=== PATIENT | male | born 1965 | race Caucasian/White ===

== ENCOUNTER 2019-05-09 15:32 | Emergency (ER) | payer SELFPAY ==
[2019-05-09] MEDS ORDERED: NS 0.9% 1000 ML** 1,000 ML IV ONE (16:40)
[2019-05-09] MEDS ORDERED: Meclizine TAB* 12.5 MG PO ONE (16:41)
--- NOTE | 2019-05-09 16:41 | ED ---
Dizziness - HPI Summary HPI Summary: This pt is a 54 Y/O M presenting to [facility] with a CC of dizziness, described as room spinning that started on 05/07/19. He states that he has been nauseas and vomiting as of recently with chest pain and a headache. He also states that he has a chronic cough. He states that he has been diaphoretic. He states that he has had a decreased appetite due to the nausea. He states that he has vomited a total of 14 days since the onset. The headaches are persistent all day and are present on the frontal aspect. His friend states that his cough aggravates his symptoms. He denies any photophobia, neck pain, diarrhea, and fevers. He states that he has no alleviating factors. He has no pertinent PMhx. He has a SHx of smoking and excessive caffeine. - History Of Current Complaint Chief Complaint: EDDizziness Stated Complaint: GENERAL ILLNESS PER PT Time Seen by Provider: 05/09/19 16:26 Hx Obtained From: Patient Timing: Constant Severity Initially: Moderate Severity Currently: Moderate Character: Room Spinning Aggravating Factor(s): Other - cough Alleviating Factor(s): Nothing Associated Signs And Symptoms: Positive: Negative - neck pain, Nausea, Vomiting , Diaphoresis, Chest Pain, Decreased Oral Intake, Other: - dizziness, described as room spinning. Negative: Diarrhea, Visual Changes, Fever - Allergies/Home Medications Allergies/Adverse Reactions: Allergies Allergy/AdvReac Type Severity Reaction Status Date / Time No Known Allergies Allergy Verified 05/09/19 15:37 PMH/Surg Hx/FS Hx/Imm Hx Previously Healthy: Yes Endocrine/Hematology History: Denies: Hx Sickle Cell Disease Cardiovascular History: Denies: Hx Cardiac Arrest - Cancer History Hx Chemotherapy: No Hx Radiation Therapy: No - Surgical History Surgical History: Yes - Immunization History Immunizations Up to Date: Yes Infectious Disease History: No Infectious Disease History: Denies: Traveled Outside the [place] in Last 30 Days - Family History Known Family History: Positive: Hypertension - Social History Occupation: Employed Full-time Lives: Alone Alcohol Use: None Hx Substance Use: Yes Substance Use Type: Reports: Excessive Caffeine Substance Use Comment - Amount & Last Used: ~6 pots coffee/day Hx Tobacco Use: Yes Smoking Status (MU): Former Smoker Review of Systems Positive: Skin Diaphoresis, Other - dizziness described as room spinning . Negative: Fever Negative: Photophobia Negative: Sore Throat Positive: Chest Pain Positive: Cough Positive: Vomiting, Nausea. Negative: Diarrhea Positive: Headache All Other Systems Reviewed And Are Negative: Yes Physical Exam - Summary Physical Exam Summary: Constitutional: Well-developed, Well-nourished, Alert. (-) Distressed Skin: Warm, Dry HENT: Normocephalic; Atraumatic Eyes: Conjunctiva normal, no nystagmus Neck: Musculoskeletal ROM normal neck. (-) JVD, (-) Stridor, (-) Tracheal deviation Cardio: Rhythm regular, rate normal, Heart sounds normal; Intact distal pulses; The pedal pulses are 2+ and symmetric. Radial pulses are 2+ and symmetric. Pulmonary/Chest wall: Effort normal. (-) Respiratory distress, (-) Wheezes, (-) Rales Abd: Soft, (-) tenderness, (-) Distension, (-) Guarding, (-) Rebound Musculoskeletal: (-) Edema Neuro: Alert, Oriented x3, no focal deficits Psych: Mood and affect Normal Triage Information Reviewed: Yes Vital Signs On Initial Exam: Initial Vitals Temp Pulse Resp BP Pulse Ox 97.8 F 59 16 150/89 99 05/09/19 15:34 05/09/19 15:34 05/09/19 15:34 05/09/19 15:34 05/09/19 15:34 Vital Signs Reviewed: Yes Procedures - Sedation Patient Received Moderate/Deep Sedation with Procedure: No Diagnostics - Vital Signs Vital Signs Temp Pulse Resp BP Pulse Ox 05/09/19 15:34 97.8 F 59 16 150/89 99 - Laboratory Result Diagrams: 05/09/19 16:45 05/09/19 16:45 Lab Statement: Any lab studies that have been ordered have been reviewed, and results considered in the medical decision making process. - Radiology CXR Radiology Interpretation Completed By: Radiologist Summary of Radiographic Findings: NO EVIDENCE FOR ACTIVE CARDIOPULMONARY DISEASE. ED physician has reviewed this report. - CT Brain CT CT Interpretation Completed By: Radiologist Summary of CT Findings: no evidence for intracranial pathologies. ED physician has reviewed this report. - EKG 1635 Cardiac Rate: Bradycardia - 55 BPM EKG Rhythm: Sinus Bradycardia ST Segment: Normal Ectopy: None Summary of EKG Findings: An EKG at 1635 reveals sinus bradycardia at a rate of 55 BPM, nml axis, nml intervals. No STEMI. No acute changes. Interpreted by Dr. Ordaz, 05/09/2019 1635 Dizzy Course/Dx - Course Course Of Treatment: This pt is a 54 Y/O M presenting to [facility] with a CC of dizziness, described as room spinning that started on 05/07/19. He states that he has been nauseas and vomiting as of recently with chest pain and a headache. He also states that he has a chronic cough. He states that he has been diaphoretic. He states that he has had a decreased appetite due to the nausea. He states that he has vomited a total of 14 days since the onset. The headaches are persistent all day and are present on the frontal aspect. His PE found razia the has no nystagmus or focal deficits. An EKG at 1635 reveals sinus bradycardia at a rate of 55 BPM, nml axis, nml intervals. No STEMI. No acute changes. His Brain CT shows no evidence for intracranial pathologies. His CXR shows the following: NO EVIDENCE FOR ACTIVE CARDIOPULMONARY DISEASE. His labratory values show no significant findings for his CC. He will be discharged home with a Dx of nonspecific dizziness. - Diagnoses Provider Diagnoses: Dizziness, nonspecific Discharge ED - Sign-Out/Discharge Documenting (check all that apply): Patient Departure - discharge - Discharge Plan Condition: Stable Disposition: HOME Prescriptions: Meclizine HCl [Dramamine Less Drowsy] 25 mg PO TID PRN #15 tablet PRN Reason: Dizziness Patient Education Materials: Dizziness (ED) Referrals: [facility] [Outside] - 2 Days Additional Instructions: PLEASE FOLLOW UP WITH THE [facility] IN 1-3 DAYS AND RETURN TO THE EMERGENCY DEPARTMENT FOR ANY NEW OR WORSENING SYMPTOMS. TAKE THE PRESCRIBED MEDICATIONS DIRECTED. - Attestation Statements Document Initiated by Scribe: Yes Documenting Scribe: Gio Waller Provider For Whom Scribe is Documenting (Include Credential): Osmel Ordaz DO Scribe Attestation: Gio Bustos, radhaed for Osmel Ordaz DO on 05/09/19 at 1820. Status of Scribe Document: Ready
[2019-05-09 16:55] LABS: ABS Basophils 0.1 10^3/ul (0-0.2); ABS Eosinophils 0.1 10^3/ul (0-0.6); ABS Lymphocytes 2.1 10^3/ul (1.0-4.8); ABS Monocytes 0.6 10^3/ul (0-0.8); ABS Neutrophils 3.1 10^3/ul (1.5-7.7); Eosinophil % 1.5 %; Hematocrit 42 % (42-52); Hemoglobin 14.6 g/dL (14.0-18.0); Lymphocyte % 35.4 %; Mean Corpuscular HGB Conc 35 g/dL (31-36); Mean Corpuscular Hemoglobin 32 pg (27-31); Mean Corpuscular Volume 92 fL (80-94); Mean Platelet Volume 6.9 fL (7.4-10.4); Platelet Count 202 10^3/uL (150-450); Red Blood Count 4.56 10^6 /uL (4.18-5.48); Red Cell Distribution Width 14 % (10-15); White Blood Count 5.9 10^3/uL (3.5-10.8)
[2019-05-09 17:20] LABS: Albumin 4.5 g/dL (3.2-5.2); Albumin/Globulin Ratio 1.7 (1-3); BUN/Creatinine Ratio 15.7 (8-20); EGFR African American 107.4 (>60); EGFR Non-African American 88.7 (>60); Globulin 2.7 g/dL (2-4); Potassium 3.7 mmol/L (3.5-5.0); Total Bilirubin 0.6 mg/dL (0.2-1.0); Total Protein 7.2 g/dL (6.4-8.9)
[2019-05-09 18:44] VITALS: BP 122/82
== END 2019-05-09 18:40 | disposition home or self-care (01) ==
LOC: ED 15:32
DX: R42 Dizziness and giddiness (principal); R07.9 Chest pain, unspecified; R51 Headache; R05 Cough
CPT/HCPCS: 36415; 70450; 71046; 80053; 84484; 85025; 93005; 96360; 99282; A9270-GY

== ENCOUNTER 2019-06-25 09:13 | Emergency (ER) | payer SELFPAY ==
[2019-06-25 10:22] VITALS: BP 117/69
--- NOTE | 2019-06-25 10:27 | ED ---
Skin Complaint - HPI Summary HPI Summary: Pt. is a 54 y.o male who presents to the ER for diffuse rash x 3 weeks. 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 Pt. states rash spread to legs and trunk. Pt. states he tried numerous allergy mediations and topical creams OTC without relief. Pt. also notes he switched to a new laundry detergent about 3 weeks ago as well. No past hx. Pt. notes today he felt like he was having difficulty swallowing and decided to get checked out. Pt. describes feeling a "lump" in his throat when swallowing. Pt. denies facial edema, difficulty breathing. Sxs are mild in severity. No current modifying factors. - History of Current Complaint Chief Complaint: EDRashSkinAbscess Time Seen by Provider: 06/25/19 09:41 Stated Complaint: RASH, AND DIFFICULTY SWALLOWING PER PT Hx Obtained From: Patient Pain Intensity: 0 - Allergy/Home Medications Allergies/Adverse Reactions: Allergies Allergy/AdvReac Type Severity Reaction Status Date / Time No Known Allergies Allergy Verified 06/25/19 09:16 PMH/Surg Hx/FS Hx/Imm Hx Previously Healthy: Yes Endocrine/Hematology History: Denies: Hx Sickle Cell Disease Cardiovascular History: Denies: Hx Cardiac Arrest - Cancer History Hx Chemotherapy: No Hx Radiation Therapy: No Infectious Disease History: No Infectious Disease History: Denies: Traveled Outside the [place] in Last 30 Days - Family History Known Family History: Positive: Hypertension, Non-Contributory - Social History Occupation: Employed Full-time Lives: With Family Alcohol Use: None Hx Substance Use: Yes Substance Use Type: Reports: Excessive Caffeine Substance Use Comment - Amount & Last Used: ~6 pots coffee/day Hx Tobacco Use: Yes Smoking Status (MU): Current Every Day Smoker Review of Systems - ROS Summary Review of Systems Summary: Meclizine HCl [Dramamine Less Drowsy] 25 mg PO TID PRN #15 tablet 05/09/19 [Rx] hydrOXYzine HCL TAB* [Atarax 25 MG TAB*] 25 mg PO TID PRN #20 tab 06/25/19 [Rx] methylPREDNISolone [Medrol Dosepak 4 MG*] 0 mg PO .SEE JIL INSTRUCTION #1 tab [Rx] Constitutional: Negative Negative: Fever Cardiovascular: Negative Respiratory: Negative Gastrointestinal: Negative Musculoskeletal: Negative Positive: Rash All Other Systems Reviewed And Are Negative: Yes Physical Exam Triage Information Reviewed: Yes Vital Signs On Initial Exam: Initial Vitals Temp Pulse Resp BP Pulse Ox 98.0 F 72 19 120/77 96 06/25/19 09:14 06/25/19 09:14 06/25/19 09:14 06/25/19 09:14 06/25/19 09:14 Vital Signs Reviewed: Yes Appearance: Positive: Well-Appearing - Pt. sitting on bed in NAD. Skin: Positive: Warm, Dry, Other - Macular papular, erythematous rash noted diffusely to arms, legs, and trunk. No vesicles or blisters. Negative nikolsky. Rash not present on palms, mouth or mucosa. Small abrasions from pt. scratching. Head/Face: Positive: Normal Head/Face Inspection Eyes: Positive: Normal, EOMI, HUBER ENT: Positive: Pharynx normal, Uvula midline. Negative: Muffled voice Neck: Positive: Supple Respiratory/Lung Sounds: Positive: Clear to Auscultation, Breath Sounds Present. Negative: Rales, Rhonchi, Wheezes Cardiovascular: Positive: Normal, RRR Musculoskeletal: Positive: Normal, Strength/ROM Intact Neurological: Positive: Normal, CN Intact II-III Psychiatric: Positive: Affect/Mood Appropriate Procedures - Sedation Patient Received Moderate/Deep Sedation with Procedure: No Diagnostics - Vital Signs Vital Signs Temp Pulse Resp BP Pulse Ox 06/25/19 09:14 98.0 F 72 19 120/77 96 - Laboratory Lab Statement: Any lab studies that have been ordered have been reviewed, and results considered in the medical decision making process. Course/Dx - Course Assessment/Plan: Pt. with diffuse rash, likely contact dermatitis given new recent exposures. Afebrile. No signs of anaphylaxis. Will treat with a course of prednisone and atarax for itching. Pt. to f.u with [facility] and may need derm referral. Advised to avoid irritants and switch back to normal laundry detergent. Will return to er if sxs change or worsen. Pt. understands and agrees with plan. - Differential Diagnoses - Skin Complaint Differential Diagnoses: Allergic Reaction, Cellulitis, Contact Dermatitis, Scabies, Tinea, Urticaria, Viral Exanthem - Diagnoses Provider Diagnoses: Contact dermatitis, Rash Discharge ED - Sign-Out/Discharge Documenting (check all that apply): Patient Departure - Discharge Plan Condition: Good Disposition: HOME Prescriptions: hydrOXYzine HCL TAB* [Atarax 25 MG TAB*] 25 mg PO TID PRN #20 tab PRN Reason: Itching methylPREDNISolone [Medrol Dosepak 4 MG*] 0 mg PO .SEE JIL INSTRUCTION #1 tab Patient Education Materials: Contact Dermatitis (ED), Acute Rash (ED) Referrals: [facility] [Outside] Jayleen Lee MD [Medical Doctor] - Additional Instructions: Please schedule an appointment with [facility] You may need to see dermatology if rash persist Medication as directed Return to ER if symptoms change or worsen - Billing Disposition and Condition Condition: GOOD Disposition: Home
== END 2019-06-25 10:22 | disposition home or self-care (01) ==
LOC: ED 09:13
DX: L25.9 Unspecified contact dermatitis, unspecified cause (principal); F17.200 Nicotine dependence, unspecified, uncomplicated
CPT/HCPCS: 99282